=== PATIENT | female | born 1985 | race Caucasian/White ===

== ENCOUNTER 2016-09-23 20:18 | Emergency (ER) | payer BC ==
[2016-09-23 21:52] VITALS: BP 134/57
== END 2016-09-23 21:56 | disposition home or self-care (01) ==
LOC: ED 20:18
DX: L03.011 Cellulitis of right finger (principal)

== ENCOUNTER 2019-07-19 19:36 | Emergency (ER) | payer BC ==
[~2019-07-19] VITALS: Ht 160 cm; Wt 91.4 kg
[2019-07-19 19:51] VITALS: Ht 160 cm; Wt 91.4 kg
[2019-07-19 20:14] LABS: BASOPHIL % 0.6 % (0-2); PLATELET COUNT 378 x10^3mcL (130-400)
[2019-07-19 20:25] LABS: RED CELL DISTRIBUTION WIDTH 16.5 % (11.5-14.5)
[2019-07-19 20:33] LABS: CALCIUM 9.2 mg/dL (8.5-10.1); CARBON DIOXIDE 26.4 mmol/L (21-32); CHLORIDE SERUM 104 mmol/L (98-107); CREATININE SERUM 0.9 mg/dL (0.6-1.0); GFR1 > 60 mL/min; GLUCOSE SERUM 106 mg/dL (74-106); POTASSIUM SERUM 4.2 mmol/L (3.5-5.1); SODIUM SERUM 140 mmol/L (136-145)
[2019-07-19 20:37] LABS: ALBUMIN 4.1 g/dL (3.4-5.0); ALKALINE PHOSPHATASE 68 U/L (46-116); ALT/SGPT 31 U/L (14-59); AST/SGOT 19 U/L (15-37); BILIRUBIN TOTAL 0.2 mg/dL (0.20-1.00); TOTAL PROTEIN, SERUM 7.8 g/dL (6.4-8.2)
[2019-07-19 21:46] VITALS: BP 114/72
== END 2019-07-19 21:46 | disposition home or self-care (01) ==
LOC: ED 19:36
PROVIDERS: Emergency Medicine
DX: N20.0 Calculus of kidney (principal)
CPT/HCPCS: J1885; J7030